=== PATIENT | female | born 1970 | race Hispanic/Latino ===

== ENCOUNTER 2024-12-05 21:25 | Emergency (ER) | payer BC, OTHER ==
[~2024-12-05] VITALS: Ht 167.6 cm; Wt 81.6 kg
[2024-12-05 21:44] VITALS: PULSE 92; RESP 20; TEMP 98.7
[2024-12-05] MEDS: DEXAMETHASONE SOD PHOS 10 MG/1 ML VIAL IM STA (22:05)
[2024-12-05] MEDS: KETOROLAC TROMETHAMINE 60 MG/2 ML VIAL IM STA (22:06)
[2024-12-05 22:32] LABS: CORONAVIRUS COVID-19 AG NEGATIVE (NEGATIVE); INFLUENZA A AG NEGATIVE (NEGATIVE); INFLUENZA B AG NEGATIVE (NEGATIVE); STREPTOCOCCUS GRP A ANTIGEN NEGATIVE (NEGATIVE)
[2024-12-05] MEDS ORDERED: PREDNISONE20 MG PO (22:41)
[2024-12-05] MEDS ORDERED: AZITHROMYCIN250 MG PO (22:41)
[2024-12-05] MEDS ORDERED: VENTOLIN HFA18 GM INH (22:41)
[2024-12-05 23:06] VITALS: BP 164/104; O2SAT 99
== END 2024-12-05 23:01 | disposition home or self-care (01) ==
LOC: ER 21:37
DX: H92.02 Otalgia, left ear (principal); J02.9 Acute pharyngitis, unspecified; R05.9 Cough, unspecified
CPT/HCPCS: 83518; 87070; 99283; J1100; J1885